=== PATIENT | female | born 1960 | race Caucasian/White ===

== ENCOUNTER → 2024-03-30 14:44 | Outpatient (REF) | payer OTHER, SELFPAY | LOC: RAD 14:44 | PROVIDERS: ATTENDING PHYSICIAN Family Medicine | DX: R07.9 Chest pain, unspecified (principal) | CPT/HCPCS: 71046 ==

== ENCOUNTER 2024-12-30 08:58 | Emergency (ER) | payer OTHER, SELFPAY ==
[2024-12-30 09:03] VITALS: BP 154/83
[2024-12-30 09:19] VITALS: BMI 26.3
--- NOTE | 2024-12-30 09:24 | ED.GENMED ---
History of Present Illness
General
Chief Complaint: Dizziness
Source: patient
Exam Limitations: none
Time Seen by Provider: 12/30/24 09:07
History of Present Illness
History of Present Illness:
64yoF with a history of hypertension, GERD, and remote history of breast cancer presenting with her for evaluation of dizziness. She went to bed feeling normal yesterday evening. She wakes up frequently in the middle of the night to use
the bathroom. During one of her bathroom breaks, she started to experience dizziness which felt like the room was spinning. She continued to experience dizziness every time she got up throughout the night. She woke up again this morning feeling
like the room was spinning which was worse when she turned over in bed. She was also nauseous. She thought her symptoms may be related to her protein intake because she has recently started exercising and eating healthier. She ate eggs this
morning without improvement so came to the ED. She is currently feeling much better but feels like she is 'on the cusp' of feeling dizzy again. She denies any associated ear pain, tinnitus, headache, visual changes, vomiting, chest pain, shortness
of breath. No recent illnesses.
Past History
Past History
ED Past Medical History: Cancer (breast, 2020, with lumpectomy), GERD, HTN (in her 40s, no meds, resolved w/ wt loss) and Other (Hiatal hernia)
ED Past Surgical History: Appendectomy (X 2), Gynecological (R breast lumpectomy, Ovarian tumor removed, Hysterectomy), Tonsilectomy and Other (Breast augmentation, Left arm surgery)
Social History
Tobacco: Former smoker
Alcohol: Occasional
Personal:
Living: with family
Phy Exam
General Physical Exam
General Presentation: well appearing and no apparent distress
General Skin: warm and dry
General Habitus: normal
General Mental: alert
ENT Exam
ENT Exam: TM's normal and other (Cerumen noted in R ear canal. L TM appears normal.)
Eye Exam
Eye Exam: PERRL, EOMI and conjunctiva normal
Cardiovascular Exam
Cardiovascular Exam: regular rate/rhythm and no murmur
Pulmonary Exam
Pulmonary Exam: lungs clear, no respiratory distress, no rales, no crackles, no rhonchi and no wheezing
Neurological Exam
Neurological Exam: alert, no motor deficits, cerebellum intact and other (PERRL. EOMs intact. Normal finger to nose and heel to zuleta bilaterally. No gait ataxia.)
[place] Coma Scale
Eye Opening: Spontaneous
Verbal Response: Oriented
Motor Response: Obeys Commands
GCS Total Score: 15
Skin Exam
Skin Exam: normal color and warm/dry
Psychiatric Exam
Psychiatric Exam: normal mood/affect
Course
Orders/Labs/Results
Orders:
Orders
12/30/24 09:24
Pt Eval And Treat Urgent
Treatment: vestibular eval
Activity Level: Out of Bed- Ad Bella
12/30/24 09:34
Complete Blood Count/With Diff Urgent
Comprehensive Metabolic Panel Urgent
Abnormal Lab Results
12/30/24
09:34
MCHC 32.6 L g/dL
(33.0-37.0)
Chloride 108 H mmol/L
(98-107)
12/30/24 09:34
12/30/24 09:34
Vital Signs
Initial and Last Documented VS:
Initial Vital Signs
Temp Pulse Resp BP Pulse Ox
97.5 F 77 16 154/83 98
12/30/24 09:03 12/30/24 09:03 12/30/24 09:03 12/30/24 09:03 12/30/24 09:03
Last Documented Vital Signs
Temp Pulse Resp BP Pulse Ox
97.5 F 77 16 151/100 98
12/30/24 09:03 12/30/24 09:03 12/30/24 09:03 12/30/24 10:18 12/30/24 09:27
MDM/Problems Addressed
Differential Diagnosis Includes:
64yoF here with dizziness. Started in the middle of the night. Feels like the room is spinning which is worse with head movement. Now feeling better. Associated with nausea. She is mildly hypertensive with otherwise stable vitals. No nystagmus or
ataxia noted on exam. Differential diagnosis includes but is not limited to: BPPV, vestibular neuronitis, M�ni�re's, doubt CVA given normal neuro exam and symptom improvement
Initial ED plan: Check basic labs and consult PT for vestibular evaluation.
*Pulse Oximetry
SaO2: 98
Oxygen Mode of Delivery: Room air
Patient hypoxic: no (98%)
*Critical Care Note
Total Time (30-74mins, 75-104mins- exclusive of procedures): Not Applicable
Update Note
Update Note:
Labs overall unremarkable. She was evaluated by physical therapy and was slightly symptomatic on the left so Shanique maneuver was performed. She was able to ambulate with a steady gait. Symptoms have mostly resolved on reassessment and she is
requesting to be discharged. Prescription provided for meclizine as well as a prescription for outpatient vestibular therapy. Advised follow-up with PCP and ED return precautions reviewed. Patient discharged in stable condition.
ED Attending Note
-
Portions of this chart may have been created with voice recognition software.� Occasional wrong word or��sound alike� substitutions may have occurred due to the inherent limitations of voice recognition software.
Discharge Plan
Departure
Patient Disposition: Home (Routine Discharge)
Date of Disposition: 12/30/24
Time of Disposition: 11:00
Patient with high blood pressure during this ER visit?: Yes
Discharge Problem:
Vertigo
Instructions: Vertigo (a Type of Dizziness) (DC)
Prescriptions:
New
meclizine 25 mg tablet
25 mg PO TID PRN (Reason: dizziness) Qty: 20 0RF
No Action
anastrozole 1 MG tablet
1 mg PO DAILY
Calcium
1 tab PO DAILY
amlodipine 5 MG tablet
5 mg PO DAILY Qty: 14 0RF
omeprazole [Prilosec] 10 mg Capsule,Delayed Release(Dr/Ec)
10 mg PO DAILY
meloxicam 15 mg tablet
15 mg PO DAILY 7 Days Qty: 7 0RF
cyclobenzaprine 10 mg tablet
10 mg PO BID PRN (Reason: muscle spasm) Qty: 7 0RF
oxycodone-acetaminophen [Endocet] 5-325 mg tablet
1 tab PO Q6H PRN (Reason: Pain) Qty: 4 0RF
Referrals:
Yu Smith MD [Family Provider, Family Practice]
Activity Restrictions/Additional Instructions:
Take meclizine as needed for dizziness.
Please call today to schedule a follow-up appointment with your family doctor as well as outpatient vestibular therapy. Return to the ER with any new or worsening symptoms.
Interventions
Interventions:
*Risk Screen - Suicide Last Done: 12/30/24 09:03
*General Assessment Last Done: 12/30/24 09:19
*Neglect/Abuse Screening Last Done: 12/30/24 09:03
*ED- Fall Risk Assessment Last Done: 12/30/24 09:19
*ED COVID-19 Vaccine History Last Done: 12/30/24 09:19
*Nursing Disposition Last Done: 12/30/24 11:08
ED- Neurological Assessment Last Done: 12/30/24 09:19
Discharge Date and Time
Discharge Date/Time: 12/30/24 11:08
Print Language: THAI
[2024-12-30 09:41] LABS: Hematocrit 43.5 % (37.0-47.0); Hemoglobin 14.2 g/dL (12.0-16.0); Mean Corp Hgb Conc. 32.6 g/dL (33.0-37.0); Mean Corpuscular Volume 87.9 fL (81.0-99.0); Nucleated Red Blood Cells % 0 %; Platelet Count 255 10^3/uL (130-400); Red Cell Dist. Width 13.2 % (11.5-14.5)
[2024-12-30 09:55] LABS: ALT (SGPT) 26 U/L (0-35); AST (SGOT) 26 U/L (14-36); Albumin 4.1 g/dl (3.5-5.0); Alkaline Phosphatase 78 U/L (38-126); Blood Urea Nitrogen 15 mg/dl (7-17); Calcium 9.1 mg/dl (8.4-10.2); Carbon Dioxide 25 mmol/L (22-30); Chloride 108 mmol/L (98-107); Estimated Creatinine Clearance 90 ml/min; Glucose 86 mg/dl (70-99); Potassium 4.4 mmol/L (3.5-5.1); Sodium 138 mmol/L (135-145); Total Protein 6.6 g/dl (6.3-8.2); eGFR > 60.00
[2024-12-30 10:07] VITALS: BP 166/94
[2024-12-30 10:18] VITALS: BP 151/100
[2024-12-30 10:36] VITALS: BP 151/100; BP 166/94
== END 2024-12-30 11:08 | disposition home or self-care (01) ==
LOC: EMR 08:58
PROVIDERS: Physician Assistant; EMERGENCY PHYSICIAN Emergency Medicine; FAMILY PHYSICIAN Family Medicine
DX: R42 Dizziness and giddiness (principal); I10 Essential (primary) hypertension; K21.9 Gastro-esophageal reflux disease without esophagitis; Z85.3 Personal history of malignant neoplasm of breast; Z87.891 Personal history of nicotine dependence; Z90.49 Acquired absence of other specified parts of digestive tract; Z90.710 Acquired absence of both cervix and uterus
CPT/HCPCS: 99283; 80053; 85025